=== PATIENT | male | born 1965 | race Caucasian/White ===

== ENCOUNTER 2021-12-03 10:04 | Emergency (ER) | payer OTHER ==
[~2021-12-03] VITALS: Ht 182.9 cm; Wt 68.0 kg
== END 2021-12-03 16:11 | disposition home or self-care (01) ==
LOC: ED 10:04
DX: R31.9 Hematuria, unspecified (principal)
CPT/HCPCS: 51701; 71045; 73130; 81001; 85025; 99285-25; J7030